=== PATIENT | female | born 1985 | race Caucasian/White ===

== ENCOUNTER 2017-12-12 14:57 | Observation (INO) | payer BC ==
[~2017-12-12] VITALS: Ht 160 cm; Wt 61.2 kg
[2017-12-12 15:50] LABS: BILIRUBIN,URINE NEGATIVE (NEG); CLARITY,URINE CLEAR; COLOR,URINE YELLOW; NITRITE,URINE NEGATIVE (NEG); PH,URINE 6.5; PROTEIN,URINE NEGATIVE (NEG-TRACE); UROBILINOGEN,URINE 0.2 mg/dL (0.2 mg/dL)
[2017-12-12 15:59] LABS: BACTERIA,URINE 0 /HPF (0-FEW); RBC,URINE 0 /HPF (0-2); SQUAMOUS EPITHELIAL CELL,UR OCC /LPF; WBC,URINE 0 /HPF (0-4)
[2017-12-12] MEDS ORDERED: MORPHINE SULFATE 4 MG/ML VIAL. IV ONE (16:30)
[2017-12-12] MEDS ORDERED: ONDANSETRON PF 4 MG/2 ML VIAL. IV ONE (16:30)
[2017-12-12] MEDS ORDERED: MORPHINE SULFATE 4 MG/ML VIAL. IV PRN (16:30)
[2017-12-12] MEDS ORDERED: ONDANSETRON PF 4 MG/2 ML VIAL. IV PRN ×3 (16:30→19:45)
--- NOTE | 2017-12-12 16:47 | PHYS DOC ---
Past Medical History Past Medical History: No Pertinent History Past Surgical History: Other Additional Past Surgical Histo: D&C, LEEP Alcohol Use: Occasionally Drug Use: None Adult General Chief Complaint Chief Complaint: OTHER COMPLAINTS HPI HPI Patient is a 32 year old -year-old female who presents with complaints of a misplaced IUD. Patient states that she had a copper IUD placed by Dr. Gayla Olivares on December 052017. She states she's been having pelvic pain since the procedure and currently reports pressure near her rectum. Patient went to diagnostic imaging in [place], [place] and had in ultrasound and x-ray of her abdomen that revealed a displaced IUD. Patient denies any fever, dysuria, increased urinary frequency, hematuria, bloody stools, nausea, vomiting, or diarrhea. She states that she is 2, para 0, with 2 previous abortions. She last had coffee to drink at approximately 1330, patient states that around noon today she took 2 tablets of ibuprofen and the plan B contraceptive. Review of Systems Review of Systems Constitutional: Denies fever or chills [] GI: Denies abdominal pain, nausea, vomiting, bloody stools or diarrhea; reports pain near rectum with displaced IUD [] : Denies increased urinary frequency, dysuria or hematuria [] Musculoskeletal: Denies back pain Current Medications Current Medications Allergies Allergies Allergies Coded Allergies Type Severity Reaction Last Updated Verified No Known Drug Allergies 12/12/17 No Physical Exam Physical Exam Constitutional: Well developed, well nourished, no acute distress, non-toxic appearance. [] HENT: Normocephalic, atraumatic, bilateral external ears normal, nose normal. [] Eyes: Normal Abdomen: Bowel sounds normal, soft, no tenderness, no masses, no pulsatile masses. 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 [] Neurologic: Alert and oriented X 3, normal motor function, normal sensory function, no focal deficits noted. [] Psychologic: Affect normal, judgement normal, mood normal. [] Current Patient Data Vital Signs Vital Signs Date Time Temp Pulse Resp B/P (MAP) Pulse Ox O2 Delivery O2 Flow Rate FiO2 12/12/17 15:48 74 18 129/59 (82) 100 Room Air 12/12/17 15:17 98.5 98.5 Lab Values Laboratory Tests Test 12/12/17 15:15 12/12/17 15:19 Urine Collection Type Unknown Urine Color Yellow Urine Clarity Clear Urine pH 6.5 Urine Specific [place] 1.020 Urine Protein Negative mg/dL (NEG-TRACE) Urine Glucose (UA) Negative mg/dL (NEG) Urine Ketones (Stick) Negative mg/dL (NEG) Urine Blood Negative (NEG) Urine Nitrite Negative (NEG) Urine Bilirubin Negative (NEG) Urine Urobilinogen Dipstick 0.2 mg/dL (0.2 mg/dL) Urine Leukocyte Esterase Negative (NEG) Urine RBC 0 /HPF (0-2) Urine WBC 0 /HPF (0-4) Urine Squamous Epithelial Cells Occ /LPF Urine Bacteria 0 /HPF (0-FEW) Urine Mucus Slight /LPF POC Urine HCG, Qualitative Hcg negative (Negative) EKG EKG [] Radiology/Procedures Radiology/Procedures Abdominal x-ray from diagnostic imaging centers dated December 12, 2017 at approximately 10:30 AM reports extrauterine position of the IUD. It is rotated approximately 90 as viewed on the frontal view. The lateral view demonstrates that applies posteriorly in the presacral region, probably cephalad to the uterine fundus. The pelvic ultrasound from diagnostic imaging dated December 12, 2017 at approximately 8:45 AM reveals an unremarkable pelvic ultrasound, with the presence of an intrauterine device, and abdominal radiograph was suggested. Course & Med Decision Making Course & Med Decision Making Pertinent Labs and Imaging studies reviewed. (See chart for details) Patient is a 32-year-old female who presents to the emergency room with reports of an improperly placed IUD, and pain near her rectum. An IV was placed in the emergency department patient was given 4 mg Zofran 4 mg of morphine for relief of her pain. Pelvic exam was performed, there was no IUD in the vaginal vault Diagnostic imaging results were reviewed. Dr. Villegas was consultation decision to admit patient for emergency surgery to remove the misplaced IUD was made. Admission orders were written and patient was advised of the need for surgery. She and her were in agreement with the plan of care. Staff Physician Addendum: I was working in the ER during the course of this patient's visit. I was available for consultation as needed, but I was not directly involved in the care of this patient. [] Dragon Disclaimer Dragon Disclaimer This electronic medical record was generated, in whole or in part, using a voice recognition dictation system. Departure Departure Referrals: WILLIAM OLIVARES MD (PCP) Scripts Oxycodone Hcl/Acetaminophen (OXYCODONE-ACETAMINOPHEN 5-325) 1 Each Tablet 2 TAB PO PRN Q4HRS PRN for MODERATE PAIN, SEVERE PAIN, #20 TAB Prov: TR VILLEGAS Jr, MD 12/13/17 Ibuprofen (Ibuprofen) 800 Mg Tablet 800 MG PO PRN Q6-8HRS PRN for INFLAMMATION, #30 TAB Prov: TR VILLEGAS Jr, MD 12/13/17 GREGG BAER WAREHOUSE SPECIALIST Dec 12, 2017 16:47 CONSTANTIN DUDLEY MD Dec 13, 2017 18:53
[2017-12-12] MEDS ORDERED: IV RINGERS,LACTATED 1000ML 1,000 ML IV SCH (16:50)
[2017-12-12] MEDS ORDERED: HYDROmorphone 2 MG/ML VIAL IV PRN (17:00)
[2017-12-12] MEDS ORDERED: LIDOCAINE 1% PF 2 ML VIAL. ID PRN (17:00)
[2017-12-12] MEDS ORDERED: PROCHLORPERAZINE 10 MG/2 ML VIAL. IV PRN ×2 (17:00→19:45)
[2017-12-12] MEDS ORDERED: fentaNYL PF VIAL 100 MCG/2 ML VIAL IV PRN ×2 (17:00)
[2017-12-12] MEDS ORDERED: MORPHINE SULFATE 2 MG/ML VIAL. IV PRN (17:00)
[2017-12-12] MEDS ORDERED: ROCURONIUM 50 MG/5 ML VIAL. ONE (17:44)
[2017-12-12] MEDS ORDERED: ONDANSETRON PF 4 MG/2 ML VIAL. ONE (17:44)
[2017-12-12] MEDS ORDERED: PROPOFOL 20 ML IV ONE (17:44)
[2017-12-12] MEDS ORDERED: fentaNYL PF VIAL 100 MCG/2 ML VIAL ONE (17:44)
[2017-12-12] MEDS ORDERED: FAMOTIDINE 20 MG/2 ML VIAL ONE (17:44)
[2017-12-12] MEDS ORDERED: SUCCINYLCHOLINE 200 MG/10 ML VIAL. ONE (18:07)
[2017-12-12] MEDS ORDERED: MIDAZOLAM HCL/PF 2 MG/2 ML VIAL. ONE (18:08)
[2017-12-12] MEDS ORDERED: DEXAMETHASONE SOD PHOS 20 MG/5 ML VIAL. ONE (18:57)
[2017-12-12] MEDS ORDERED: BUPIVACAINE-EPI 0.25%-1:200000 50 ML VIAL. INJ ONE (18:59)
[2017-12-12] MEDS ORDERED: GLYCOPYRROLATE 1 MG/5 ML VIAL. ONE (19:10)
[2017-12-12] MEDS ORDERED: DESFLURANE 16 TO 30 MINUTES. IH ONE (19:12)
[2017-12-12] MEDS ORDERED: KETOROLAC 30 MG/ML INJ FOR OR. INJ ONE (19:16)
--- NOTE | 2017-12-12 19:35 | PDOC ---
BRIEF OPERATIVE NOTE Date: Dec 12, 2017 Pre-Op Diagnosis Misplaced IUD Post-Op Diagnosis Same Procedure Performed LPSC removal foreign body Surgeon Dr. Villegas Anesthesia Type: General Blood Loss less than 5 ml Specimens Obtained Paragard IUD Findings nml size uterus with no active bleeding or evidence of bowel perforation; Paragard IUD in posterior culde sac Complications none Operative Note see dictation TR VILLEGAS Jr, MD Dec 12, 2017 19:35
[2017-12-12] MEDS ORDERED: SIMETHICONE 80 MG TAB.CHEW PO PRN (19:45)
[2017-12-12] MEDS ORDERED: diphenhydrAMINE HCL 25 MG CAPSULE PO PRN (19:45)
[2017-12-12] MEDS ORDERED: ZOLPIDEM 5 MG TABLET. PO PRN (19:45)
[2017-12-12] MEDS ORDERED: CALCIUM CARBONATE 500 MG TAB.CHEW PO PRN (19:45)
[2017-12-12] MEDS ORDERED: diphenhydrAMINE 50 MG/ML VIAL IV PRN (19:45)
[2017-12-12] MEDS ORDERED: 0.9 % SODIUM CHLORIDE 10 ML DISP.SYRIN. IV PRN (19:45)
[2017-12-12] MEDS ORDERED: KETOROLAC 30 MG/ML VIAL. IV PRN (19:45)
[2017-12-12] MEDS ORDERED: DEXTROSE 50% 25 GM / 50ML DISP.SYRIN. IV PRN (19:45)
[2017-12-12 20:30] VITALS: BP 102/59
--- NOTE | 2017-12-12 20:58 | OP ---
DATE OF SURGERY: 12/12/2017 PREOPERATIVE DIAGNOSIS: Misplaced intrauterine contraceptive device. POSTOPERATIVE DIAGNOSIS: Misplaced intrauterine contraceptive device. PROCEDURE: Laparoscopic removal of foreign body; ParaGard IUD. SURGEON: Austin Villegas MD. ANESTHESIA: GETA. ESTIMATED BLOOD LOSS: Less than 5 mL. COMPLICATIONS: None. FINDINGS: Normal size uterus with no active bleeding or evidence of bowel perforation. ParaGard IUD in posterior cul-de-sac. Bilateral fallopian tubes and ovaries appeared normal. SUMMARY: A 32-year-old 0 who had presented to Emergency Department due to abdominal pain. The patient reported placement of IUD one week ago in the clinic. She continued to have severe abdominal pain after placement and had abdominal ultrasound as well as x-rays performed today that demonstrated a misplaced IUD intraabdominally. The patient was counseled on the need for emergent surgery. The risks, benefits, and expectations of laparoscopic exploration for IUD removal with the possibility of open laparotomy and voiced clear understanding to proceed. DESCRIPTION OF PROCEDURE: The patient was taken to surgery suite and placed in dorsal lithotomy position. She was prepped with Betadine solution for vaginal prep and ChloraPrep for abdominal prep. After adequate anesthesia, bivalve speculum was placed vaginally. Hulka uterine manipulator was placed. The bivalve speculum was removed. Attention was now placed on abdomen. Small transverse skin incision made just below the umbilicus with a scalpel. The Veress needle was then placed through the infraumbilical incision site. The abdomen was allowed to insufflate up to 1-1/2 liters CO2 gas. The Veress needle was then removed. A 5-mm trocar was placed. Camera was positioned. Uterus was normal size. Fallopian tubes and ovaries appeared normal bilaterally. In the posterior cul-de-sac, the ParaGard IUD was visualized. Two incisions made in the left lower quadrant with a scalpel in which 5-mm trocars were placed. With aid of graspers, the ParaGard IUD was removed. There was no evidence of active bleeding or bowel perforation. The rest of the abdominal cavity was explored and appeared normal. The trocars were then removed under direct visualization. Abdomen was allowed to deflate as much as possible along with mechanical manipulation. The three skin incisions were reapproximated using 4-0 Vicryl suture in a subcuticular manner. A 0.25% Marcaine with epinephrine was injected at each incision site. A Hulka uterine manipulator was removed. The patient tolerated the procedure well and was taken to recovery room in stable condition. Sponge and needle count correct x 3. AUSTIN VILLEGAS MD DR: SANTINO/chanel JOB#: [id number] / [id number]
[2017-12-12 21:30] VITALS: BP 97/50
[2017-12-12] MEDS: GABAPENTIN 300 MG CAPSULE. PO SCH (23:02)
[2017-12-12] MEDS: oxyCODONE/APAP 5/325 1 TAB TABLET PO PRN (23:02)
[2017-12-12 23:11] VITALS: BP 105/54
[2017-12-13] MEDS: oxyCODONE/APAP 5/325 1 TAB TABLET PO PRN (01:51)
[2017-12-13 05:22] LABS: BASO % 0 % (0-3); EOS % 0 % (0-3); HEMATOCRIT 40.7 % (36.0-47.0); HEMOGLOBIN 13.8 g/dL (12.0-15.5); LYMPH % 9 % (24-48); MEAN CORPUSCULAR HEMOGLOBIN 33 pg (25-35); MEAN CORPUSCULAR HGB CONC 34 g/dL (31-37); MEAN CORPUSCULAR VOLUME 98 fL (79-100); MONO # 0.3 x10^3/uL (0.0-1.1); MONO % 3 % (0-9); NEUT % 88 % (31-73); PLATELET COUNT 186 x10^3/uL (140-400); RED BLOOD COUNT 4.13 x10^6/uL (3.50-5.40); RED CELL DISTRIBUTION WIDTH 12.9 % (11.5-14.5); WHITE BLOOD COUNT 10.3 x10^3/uL (4.0-11.0)
[2017-12-13 06:43] VITALS: BP 93/53
[2017-12-13] MEDS: GABAPENTIN 300 MG CAPSULE. PO SCH (08:59)
[2017-12-13 09:05] LABS: % BANDS 1 % (0-9); % LYMPHS 6 % (24-48); % MONOS 1 % (0-10); % SEGS 92 % (35-66); PLT ESTIMATE ADEQUATE (ADEQUATE)
[2017-12-13] MEDS ORDERED: IBUPROFEN 800 MG TABLET. PO PRN (11:45)
[2017-12-13 12:20] VITALS: BP 97/56
--- NOTE | 2017-12-13 12:38 | PDOC ---
SURGICAL PROGRESS NOTE Subjective Pt. feeling well. Vital Signs Vital Signs Date Time Temp Pulse Resp B/P (MAP) Pulse Ox O2 Delivery O2 Flow Rate FiO2 12/13/17 06:43 98.2 75 18 93/53 (66) 97 Room Air 98.2 12/12/17 20:00 8 I&O Intake and Output 12/13/17 07:00 Intake Total 2035 ml Output Total 5 ml Balance 2030 ml Intake Oral 1020 ml IV Total 800 ml Other 215 ml Output Estimated Blood Loss 5 ml # Voids 4 PATIENT HAS A BARRETT: No General: Alert, Oriented X3, Cooperative HEENT: Atraumatic Lungs: Clear to auscultation Heart: Regular rate Abdomen: Normal bowel sounds, Soft, No tenderness, No masses Psych/Mental Status: Mental status NL Labs Laboratory Tests Test 12/12/17 15:15 12/12/17 15:19 12/13/17 03:30 Urine Collection Type Unknown Urine Color Yellow Urine Clarity Clear Urine pH 6.5 Urine Specific [place] 1.020 Urine Protein Negative mg/dL (NEG-TRACE) Urine Glucose (UA) Negative mg/dL (NEG) Urine Ketones (Stick) Negative mg/dL (NEG) Urine Blood Negative (NEG) Urine Nitrite Negative (NEG) Urine Bilirubin Negative (NEG) Urine Urobilinogen Dipstick 0.2 mg/dL (0.2 mg/dL) Urine Leukocyte Esterase Negative (NEG) Urine RBC 0 /HPF (0-2) Urine WBC 0 /HPF (0-4) Urine Squamous Epithelial Cells Occ /LPF Urine Bacteria 0 /HPF (0-FEW) Urine Mucus Slight /LPF Bedside Urine HCG, Qualitative Hcg negative (Negative) White Blood Count 10.3 x10^3/uL (4.0-11.0) Red Blood Count 4.13 x10^6/uL (3.50-5.40) Hemoglobin 13.8 g/dL (12.0-15.5) Hematocrit 40.7 % (36.0-47.0) Mean Corpuscular Volume 98 fL (79-100) Mean Corpuscular Hemoglobin 33 pg (25-35) Mean Corpuscular Hemoglobin Concent 34 g/dL (31-37) Red Cell Distribution Width 12.9 % (11.5-14.5) Platelet Count 186 x10^3/uL (140-400) Neutrophils (%) (Auto) 88 % (31-73) Lymphocytes (%) (Auto) 9 % (24-48) Monocytes (%) (Auto) 3 % (0-9) Eosinophils (%) (Auto) 0 % (0-3) Basophils (%) (Auto) 0 % (0-3) Neutrophils # (Auto) 9.0 x10^3uL (1.8-7.7) Lymphocytes # (Auto) 1.0 x10^3/uL (1.0-4.8) Monocytes # (Auto) 0.3 x10^3/uL (0.0-1.1) Eosinophils # (Auto) 0.0 x10^3/uL (0.0-0.7) Basophils # (Auto) 0.0 x10^3/uL (0.0-0.2) Segmented Neutrophils % 92 % (35-66) Band Neutrophils % 1 % (0-9) Lymphocytes % 6 % (24-48) Monocytes % 1 % (0-10) Platelet Estimate Adequate (ADEQUATE) Laboratory Tests Test 12/12/17 15:15 12/12/17 15:19 12/13/17 03:30 Urine Collection Type Unknown Urine Color Yellow Urine Clarity Clear Urine pH 6.5 Urine Specific [place] 1.020 Urine Protein Negative mg/dL (NEG-TRACE) Urine Glucose (UA) Negative mg/dL (NEG) Urine Ketones (Stick) Negative mg/dL (NEG) Urine Blood Negative (NEG) Urine Nitrite Negative (NEG) Urine Bilirubin Negative (NEG) Urine Urobilinogen Dipstick 0.2 mg/dL (0.2 mg/dL) Urine Leukocyte Esterase Negative (NEG) Urine RBC 0 /HPF (0-2) Urine WBC 0 /HPF (0-4) Urine Squamous Epithelial Cells Occ /LPF Urine Bacteria 0 /HPF (0-FEW) Urine Mucus Slight /LPF Bedside Urine HCG, Qualitative Hcg negative (Negative) White Blood Count 10.3 x10^3/uL (4.0-11.0) Red Blood Count 4.13 x10^6/uL (3.50-5.40) Hemoglobin 13.8 g/dL (12.0-15.5) Hematocrit 40.7 % (36.0-47.0) Mean Corpuscular Volume 98 fL (79-100) Mean Corpuscular Hemoglobin 33 pg (25-35) Mean Corpuscular Hemoglobin Concent 34 g/dL (31-37) Red Cell Distribution Width 12.9 % (11.5-14.5) Platelet Count 186 x10^3/uL (140-400) Neutrophils (%) (Auto) 88 % (31-73) Lymphocytes (%) (Auto) 9 % (24-48) Monocytes (%) (Auto) 3 % (0-9) Eosinophils (%) (Auto) 0 % (0-3) Basophils (%) (Auto) 0 % (0-3) Neutrophils # (Auto) 9.0 x10^3uL (1.8-7.7) Lymphocytes # (Auto) 1.0 x10^3/uL (1.0-4.8) Monocytes # (Auto) 0.3 x10^3/uL (0.0-1.1) Eosinophils # (Auto) 0.0 x10^3/uL (0.0-0.7) Basophils # (Auto) 0.0 x10^3/uL (0.0-0.2) Segmented Neutrophils % 92 % (35-66) Band Neutrophils % 1 % (0-9) Lymphocytes % 6 % (24-48) Monocytes % 1 % (0-10) Platelet Estimate Adequate (ADEQUATE) Assessment/Plan A: POD#1 s/p LPSC removal foreign body P: D/c home. TR SU Jr, MD Dec 13, 2017 12:38
--- NOTE | 2017-12-13 12:39 | DISCH ---
DISCHARGE INSTRUCTIONS Condition on Discharge Condition on Discharge: Stable Activity After Discharge Activity Instructions for Disc: Activity as tolerated Lifting Instructions after Dis: No heavy lifting Driving Instructions after Dis: Do not drive today Diet after Discharge Diet after Discharge: Regular Contacting the DRJace after DC Call your doctor for: Concerns you may have Follow-Up Follow Up With: dr goldberg 1 week TR GOLDBERG Jr, MD Dec 13, 2017 12:39
[2017-12-13] MEDS ORDERED: OXYC1TAB7 PO (12:41)
[2017-12-13] MEDS ORDERED: IBUP800T19 PO (12:41)
--- NOTE | 2017-12-19 10:12 | PATHOLOGY ---
[facility] Accession Number: [id number] . 01 Material submitted: . INTRA UTERINE DEVICE . 01 Clinical history: . None provided . 02 Diagnosis: Intrauterine device (gross only). (JPM/db; 12/18/17) LBQ/12/18/2017 . 02 Electronically signed: . Alvaro Melvin MD, Pathologist NPI- [id number] . 01 Gross description: . Received fresh labeled "Jasmin Bella, intrauterine device," is a T-shaped intrauterine device composed of white plastic measuring 3.5 x 3.1 x 0.2 cm in greatest dimension. The arms of the device are partially and symmetrically wrapped in copper, and most of the stem is wrapped in copper. At the base of the stem there is an attached nylon thread measuring 8.4 cm in length. A gross photograph is taken, and tissue is not submitted. ([facility]; 12/17/2017) XDC/XDC . 02 Pathologist provided ICD-10: Z30.432 . 02 CPT . 990683 Specimen Comment: A courtesy copy of this report has been sent to Specimen Comment: [phone], . Specimen Comment: [id number] Specimen Comment: A duplicate report has been generated due to demographic updates. Performed at: 01 [facility] [address], [place] [id number] MD David Borrego MD Phone: [phone] Performed at: 02 [facility] [address], [place] [id number] MD Alvaro eMlvin MD Phone: [phone]
== END 2017-12-13 13:30 | disposition home or self-care (01) ==
LOC: ER 14:57 → 3 NORTH 16:25 → INTOOBSV 16:25
PROVIDERS: ADMIT Obstetrics & Gynecology; ATTEND Obstetrics & Gynecology
DX: T83.32XA Displacement of intrauterine contraceptive device, initial encounter (principal); Y76.2 Prosthetic and other implants, materials and accessory obstetric and gynecological devices associated with adverse incidents; Y92.89 Other specified places as the place of occurrence of the external cause; Z30.432 Encounter for removal of intrauterine contraceptive device
CPT/HCPCS: 36415; 58301; 81001; 81025; 85007; 85025; 88300; 96374; 96375; 99285; G0378; J0330; J0690; J1100; J1885; J2250; J2270; J2405; J2704; J3010; J3490; J7030; J7120; S0028; 96365; 96366; 96372; A7015; G0379